=== PATIENT | female | born 1980 | race Caucasian/White ===

== ENCOUNTER 2024-08-15 09:57 | Emergency (ER) | payer BC, SELFPAY ==
[2024-08-15] VITALS (14 sets, daily range): BP systolic 99–126; BP diastolic 51–76; PULSE 64–87; RESP 14–20; TEMP 36.9–37.6; O2SAT 98–100; BMI 22.1
[2024-08-15 10:38] LABS: Hematocrit 21.1 % (37.0-47.0); Mean Corpuscular HGB Conc 26.1 g/dl (31.0-35.0); Mean Corpuscular Hemoglobin 17.5 pg (27.0-33.0); Mean Corpuscular Volume 67.2 fL (80.0-98.0); PLT CLUMP 1; Red Blood Count 3.14 X10*6/uL (4.20-5.50); Red Cell Distribution Width 34.5 % (11.0-16.0)
[2024-08-15 10:42] LABS: Alanine Aminotransferase 11 U/L (0-31); Albumin Level 4.4 g/dL (3.5-5.0); Alkaline Phosphatase 51 U/L (39-117); Anion Gap 8 (12-20); Aspartate Amino Transferase 16 U/L (5-31); Bilirubin Total 0.4 mg/dL (0.0-1.0); Blood Urea Nitrogen 7 mg/dL (9-16); Calcium 8.8 mg/dL (8.4-10.2); Carbon Dioxide 22 mmol/L (22-29); Chloride 112 mmol/L (96-108); Creatinine Clr Calc Pharmacy 93.4; Estimated Glomerular Filt Rate > 60; Glucose Random 118 mg/dL (60-115); Potassium 3.4 mmol/L (3.3-5.1); Sodium 139 mmol/L (135-145); Total Protein 7.7 g/dL (6.5-8.0)
[2024-08-15 10:46] LABS: Hemoglobin 5.5 g/dl (12.0-16.0)
[2024-08-15 10:58] LABS: Platelet Count 199 X10*3/uL (160-400)
[2024-08-15 10:59] LABS: SLIDE REVIEW MANUAL DIFF
[2024-08-15 11:07] LABS: Atypical Lymph Absolute Manual 0.1 x10*3/uL; Atypical Lymphs Percent Manual 1 % (0-6); Band Neutrophils Percent 4 % (3-5); Eosinophils Absolute Manual 0.1 X10*3/uL (0.0-0.4); Eosinophils Percent Manual 1 % (0-4); Lymphocytes Absolute Manual 1.8 X10*3/uL (1.2-4.9); Lymphocytes Percent Manual 18 % (20-40); Metamyelocytes Absolute 0.2 X10*3/uL; Metamyelocytes Percent 2 %; Monocytes Absolute Manual 0.1 X10*3/uL (0.1-1.2); Monocytes Percent Manual 1 % (2-11); Neutrophils Absolute Manual 7.7 X10*3/uL (2.0-8.3); Neutrophils Percent Manual 73 % (45-73); Nucleated Red Blood Cells 4 /100WBC (0-0)
[2024-08-15 11:14] LABS: RBC Morphology NOTED
[2024-08-15 11:15] LABS: Microcytosis 3+ (>30) /OIF; Ovalocytes 1+ (5-14) /OIF; Schistocytes 2+ (3-5) /OIF; Spherocytes 2+ (3-5) /OIF
--- NOTE | 2024-08-15 11:15 | ED_ITS ---
HPI - General Adult General Chief complaint: Recheck/Abnormal Lab/Rx Stated complaint: low iron Time Seen by Provider: 08/15/24 11:07 Source: patient Mode of arrival: ambulatory Limitations: no limitations History of Present Illness ED Provider: Anju Mccarty PA-C HPI narrative: Patient is a 44 year old assigned female at with a history of abnormal uterine bleeding presenting to the emergency department today with anemia. Patient states that she has been having issues with abnormal uterine bleeding for months and is following with [facility]. Patient states that she has plans to get a uterine biopsy but they have asked she get her blood counts stabilized first. Patient states that she is NOT currently / actively bleeding. Patient states that she has been more fatigued lately. Patient denies any dizziness, lightheadedness, abdominal pain, nausea, vomiting, fever, chills, blurry vision, double vision, loss of vision, chest pain, difficulty breathing, shortness of breath, back pain, night sweats, pain with urination, increased urinary frequency, increased urinary urgency, syncope or a near syncopal episode, recent trauma or falls, bowel incontinence, bladder incontinence, or any other complaints at this time. Onset (ago): month(s) Relieving factors: none Exacerbating factors: none Associated symptoms: denies other symptoms Treatments prior to arrival: none Related Data Allergies Allergy/AdvReac Type Severity Reaction Status Date / Time No Known Allergies Allergy Verified 08/15/24 10:03 Review of Systems 2 Constitutional: Constitutional: Reports no additional constitutional complaints, Denies chills, Reports fatigue, Denies fever(s) and Denies night sweats Eyes: Eyes: Reports no additional eye complaints, Denies blurry vision, Denies change in vision, Denies diplopia, Denies eye discharge, Denies loss of vision and Denies eye pain ENT: Denies dizziness Cardiovascular: Cardiovascular: Reports no additional cardiovascular complaints, Denies chest pain, Denies lightheadedness, Denies Loss of Consciousness and Denies dyspnea Respiratory: Respiratory: Reports no additional respiratory complaints and Denies dyspnea Gastrointestinal: Gastrointestinal: Reports no additional gastrointestinal complaints, Denies abdominal pain, Denies melena, Denies hematochezia, Denies change in bowel habits and Denies change in stool character Genitourinary: Genitourinary: Denies hematuria, Denies urinary frequency, Denies dysuria, Denies urinary incontinence, Denies urinary hesitancy and Denies urinary urgency Musculoskeletal: Musculoskeletal: Reports no additional musculoskeletal complaints, Denies numbness and Denies tingling Neurologic: Denies dizziness, Denies loss of vision, Denies numbness and Denies tingling Psychiatric: Psychiatric: Reports no additional psychiatric complaints Endocrine: Endocrine: Reports no additional endocrine complaints and Reports fatigue Hematologic/Lymphatic: Hematologic/Lymphatic: Reports no additional hematologic/lymphatic complaints Allergic/Immunologic: Allergic/Immunologic: Reports no additional allergic/immunologic complaints PMFSH Past Medical History Attestation statement: The following information was validated with the patient. Source: old records reviewed and nursing notes reviewed Social History Social History Smoked in Last 30 Days: No Use of substances other than those prescribed or required for medical reasons: Yes Substance Use Type: Marijuana Advance Directives: No Advance Directives Information Provided: Yes Patient : No Physical Exam ED Vital Signs: Vital Signs - 24 hr 08/15/24 09:59 08/15/24 13:02 08/15/24 13:16 Temperature 99.7 F 98.7 F 98.6 F Pulse Rate 87 77 78 Respiratory Rate 16 16 18 Blood Pressure 126/51 L 107/55 L 105/59 L Pulse Oximetry 100 100 Oxygen Delivery Method Room Air Room Air 08/15/24 13:32 08/15/24 15:01 08/15/24 15:55 Temperature 98.9 F 98.9 F Pulse Rate 72 64 67 Respiratory Rate 18 18 14 Blood Pressure 99/52 L 103/59 L 107/66 Pulse Oximetry 100 100 Oxygen Delivery Method Room Air Room Air 08/15/24 16:00 08/15/24 18:05 08/15/24 18:31 Temperature 98.9 F 98.7 F Pulse Rate 67 68 72 Respiratory Rate 14 16 18 Blood Pressure 107/66 115/63 113/63 Pulse Oximetry 100 Oxygen Delivery Method Room Air 08/15/24 18:47 Temperature 98.4 F Pulse Rate 66 Respiratory Rate 20 Blood Pressure 113/66 Pulse Oximetry Oxygen Delivery Method BMI result Body Mass Index 22.1 Const General: cooperative, no acute distress, alert and awake Nutritional Appearance: well nourished Orientation/consciousness: patient oriented x3 Limitations: no limitations HENMT Head: Yes normal to inspection and Yes atraumatic Ears: hearing grossly normal bilaterally and external ears normal General nose exam: Normal external nose present, no nasal discharge noted and no epistaxis Face and sinus: Yes normal facial exam, No abrasion and No laceration Mouth: Normal oral and palatal mucosa present, no drooling and no muffled voice Eyes General: appearance normal, both eyes and all related structures Periorbital: periorbital findings normal Eyelids: Yes eyelids normal Conjunctivae: conjunctivae normal Pupils: Equal, round and reactive pupils present EOM: EOMs intact bilaterally Neck Neck: Yes normal visual inspection, Yes full ROM and Yes no lymphadenopathy Chest Chest palpation & inspection: normal inspection of the chest Resp Effort & Inspection: normal respiratory effort and able to speak in complete sentences GI Inspection: Yes normal to inspection Neuro General: patient oriented x3 and moves all extremities Cranial nerves: Yes Equal, round and reactive pupils present Cognition (Neuro): normal cognition Extrem General: Yes normal to inspection, Yes full ROM and Yes capillary refill normal Psych Appearance: grossly normal Mental Status: mental status grossly normal Affect: normal affect Attitude: cooperative Thought process: Normal thought process present Thought content: Normal thought content present Insight: Good insight present (Psych) Medical Decision Making Medical Decision Making MDM Narrative: Patient is a 44 year old assigned female at with a history of abnormal uterine bleeding presenting to the emergency department today with anemia. Patient's physical exam was unremarkable. Patient's blood work showed a hgb of 5.5 with a hct of 21.1. I explained my physical exam findings as well as all test results to the patient. I answered all questions asked by the patient. Patient was transfused with 2 units of PRBCs, without incident. Patient is not actively bleeding and is well appearing. I stressed the importance of the patient taking her medication as directed (either prescribed or as the over the counter packaging recommends). I stressed the importance of the patient following up with her primary care provider and her OBGYN (as scheduled). I stressed the importance of the patient returning to the emergency department immediately if her symptoms were to worsen or if she were to develop any vaginal bleeding, dizziness, shortness of breath, difficulty breathing, chest pain, blurry vision, loss of vision, nausea, vomiting, abdominal pain, fever, chills, back pain, or any other complaints. Patient verbalized agreement and understanding with this treatment plan and discharge. Differential Diagnosis Differential Diagnoses: The differential diagnosis associated with the presentation includes Abnormal uterine bleeding Anemia Admission/Observation Consideration of admission/observation: Escalation of care including admission/observation considered Patient would have been admitted to the hospital had her work up had any findings where hospital admission was appropriate and her clinical presentation warranted hospital admission. Lab Data [facility] Lab Attestation statement: I reviewed the patient's lab results. My interpretation of these results are in the [facility] Rationale portion of this note. 08/15/24 10:19 08/15/24 10:19 Labs: Lab Results 08/15/24 08/15/24 Range/Units 10:19 12:03 WBC 10.0 (4.8-10.8) X10*3/uL RBC 3.14 L (4.20-5.50) X10*6/uL Hgb 5.5 L* (12.0-16.0) g/dl Hct 21.1 L (37.0-47.0) % MCV 67.2 L (80.0-98.0) fL MCH 17.5 L (27.0-33.0) pg MCHC 26.1 L (31.0-35.0) g/dl RDW 34.5 H (11.0-16.0) % Plt Count 199 (160-400) X10*3/uL MPV Not Reportable Immature Gran % (Auto) Cancelled Neut % (Auto) Cancelled Lymph % (Auto) Cancelled [place] % (Auto) Cancelled Eos % (Auto) Cancelled Baso % (Auto) Cancelled Lymph # (Auto) Cancelled [place] # (Auto) Cancelled Eos # (Auto) Cancelled Baso # (Auto) Cancelled Abs Immat Gran (auto) Cancelled Absolute Neuts (auto) Cancelled Absolute Nucleated RBC 0.300 H (0.0-0.012) X10*3/uL Nucleated RBC % (auto) 3.0 H (0.0-0.2) /100WBC Neutrophils % (Manual) 73 (45-73) % Band Neutrophils % 4 (3-5) % Lymphocytes % (Manual) 18 L (20-40) % Atypical Lymphs % (Man) 1 (0-6) % Monocytes % (Manual) 1 L (2-11) % Eosinophils % (Manual) 1 (0-4) % Metamyelocytes % 2 % Abs Neuts (Manual) 7.7 (2.0-8.3) X10*3/uL Lymphocytes # (Manual) 1.8 (1.2-4.9) X10*3/uL Atyp Lymphs # (Manual) 0.1 x10*3/uL Monocytes # (Manual) 0.1 (0.1-1.2) X10*3/uL Eosinophils # (Manual) 0.1 (0.0-0.4) X10*3/uL Metamyelocytes # 0.2 X10*3/uL Nucleated RBCs 4 H (0-0) /100WBC Platelet Estimate NORMAL (NORMAL) Plt Morphology Comment NORMAL RBC Morphology NOTED Polychromasia 2+ (3-5) /OIF Hypochromasia 3+ (>30) /OIF Basophilic Stippling 1+ (0-2) /OIF Microcytosis 3+ (>30) /OIF Spherocytes 2+ (3-5) /OIF Tear Drop Cells 1+ (0-2) /OIF Ovalocytes 1+ (5-14) /OIF Schistocytes 2+ (3-5) /OIF Smear Tech's Comments MANUAL DIFF Sodium 139 (135-145) mmol/L Potassium 3.4 (3.3-5.1) mmol/L Chloride 112 H (96-108) mmol/L Carbon Dioxide 22 (22-29) mmol/L Anion Gap 8 L (12-20) BUN 7 L (9-16) mg/dL Creatinine 0.62 (0.5-1.4) mg/dL Estim Creat Clear Calc 93.4 Estimated GFR > 60 Random Glucose 118 H (60-115) mg/dL Calcium 8.8 (8.4-10.2) mg/dL Total Bilirubin 0.4 (0.0-1.0) mg/dL AST 16 (5-31) U/L ALT 11 (0-31) U/L Alkaline Phosphatase 51 (39-117) U/L Total Protein 7.7 (6.5-8.0) g/dL Albumin 4.4 (3.5-5.0) g/dL Beta HCG, Quant < 2 mIU/mL Blood Type AB Positive Antibody Screen NEGATIVE Crossmatch See Detail Discharge Plan Discharge Clinical Impression: Anemia Patient Disposition: Home, Self-Care Instructions: Anemia (ED) Additional Instructions: Follow up with your primary care provider and your OBGYN as scheduled. Return to the emergency department immediately if your symptoms worsen or if you develop any dizziness, shortness of breath, difficulty breathing, chest pain, blurry vision, loss of vision, nausea, vomiting, abdominal pain, fever, chills, back pain, or any other complaints. Referrals: [facility] [place] [facility] [place]] (Call to establish and follow up with a primary care provider. If you already have a primary care provider, please follow up with them.) [facility] [place] [facility] [Provider Group] (Call to establish and follow up with a primary care provider. If you already have a primary care provider, please follow up with them.) [facility] [place] [facility] [[facility]] (Call to establish and follow up with a primary care provider. If you already have a primary care provider, please follow up with them.) Stand Alone Forms: Work/School Release Print Language: Urdu
[2024-08-15 11:16] LABS: Hypochromasia 3+ (>30) /OIF; Polychromasia 2+ (3-5) /OIF; Tear Drop Cells 1+ (0-2) /OIF
[2024-08-15 11:17] LABS: Basophilic Stippling 1+ (0-2) /OIF
[2024-08-15 11:18] LABS: Platelet Estimate NORMAL (NORMAL); Platelet Morphology Comment NORMAL
[2024-08-15 11:44] LABS: HCG Quantitative < 2 mIU/mL
--- NOTE | 2024-08-15 11:50 | PC.NURSE ---
patient a&ox3, bilateral ac ivs inserted, labs drawn, pt placed on jack winder nsr, vitals stable. pt awaiting blood tranfusion, call alvarez within reach, plan of care ongoing
--- NOTE | 2024-08-15 13:28 | PC.NURSE ---
patient a&ox3, 1st unit of rbc has started vss upon starting, nsr on monitor, pt watching tv, call alvarez within reach, pt understanding s/s of reaction to blood, plan of care ongoing
--- NOTE | 2024-08-15 13:44 | PC.NURSE ---
pt is tolerating blood well
--- NOTE | 2024-08-15 18:07 | MHC.EDTECH ---
patient stated she felt heart palpitations and hot flashes. RN aware.
--- NOTE | 2024-08-15 18:37 | PC.NURSE ---
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 will notify the provier
--- NOTE | 2024-08-15 20:33 | PC.NURSE ---
tolerating blood product well. no complaints of cough/cp/dyspnea/rash. speech clear, skin color norm.
--- NOTE | 2024-08-15 21:40 | PC.NURSE ---
tolerated blood transfusion well. gait steady, no dyspnea. mental status at baseline.
== END 2024-08-15 21:39 | disposition home or self-care (01) ==
PROVIDERS: Emergency Medicine; Emergency Provider Emergency Medicine
DX: D64.9 Anemia, unspecified (principal); N93.9 Abnormal uterine and vaginal bleeding, unspecified
CPT/HCPCS: 36415; 36430; 80053; 84702; 85007; 85027; 86850; 86900; 86901; 86923; 99284; 99285; P9016